=== PATIENT | male | born 1940 | race Caucasian/White ===

== ENCOUNTER 2022-01-11 06:07 | Day surgery (SDC) | payer MEDICARE, OTHER ==
[~2022-01-11] VITALS: Ht 175.3 cm; Wt 80.5 kg
[~2022-01-11 06:07] MED LIST: LEVOTHYROXINE75 MCG PO; MOMETASONE FURO17 GM NAS; VENTOLIN HFA18 GM INH
--- NOTE | 2022-01-11 08:33 | NUR ---
PT ALERT, ORIENTED AND SUPPORTED BY HIS . PT HAS HAD PREVIOUS SCOPE, DROVE MORE THAN AN HOUR TO GET HERE THIS MORNING. ALL QUESTIONS ASKED ANSWERED. RT IN TO GIVE EKG, GAVE BLESSING AND WILL FOLLOW
--- NOTE | 2022-01-11 09:03 | NUR ---
01/11/22 0903 Sheets,Malena 0800 PT ARRIVED TO PACU ON 6L VIA MASK, VSS. RESP EVEN AND UNLABORED. PT REACTIVE TO TACTILE STIMULI.
--- NOTE | 2022-01-11 17:55 | OR ---
[facility] [address], [place] [address] Signed DATE OF OPERATION: 01/11/2022 SURGEON: Yanet Mcnulty MD PREOPERATIVE DIAGNOSIS: Known history of ulcerative colitis; recently symptomatic with episodic blood per rectum and diarrhea. POSTOPERATIVE DIAGNOSES: 1. Moderate colitis of left colon, sigmoid and rectum, proximal colon normal. 2. Diverticulosis. 3. Polyps x4 (sigmoid and rectum). PROCEDURES: 1. Total colonoscopy to cecum with hot snare polypectomy x4. 2. Cold morcellation biopsies, rectum, sigmoid, left colon, transverse, and cecum. ANESTHESIA: Intravenous sedation, propofol infusion; Lakisha Jeffery CRNA. INDICATIONS: This 81-year-old white man is a patient of Dr. Cristy Carmen and well known to me from the past and been diagnosed with ulcerative colitis. A variety of first level medications have been given to him, which for various reasons he does not tolerate well. He was quite intolerant of mesalamine, ultimately which changed to a more classic regimen, which again caused nausea. He ultimately quit taking his medication altogether and was feeling reasonably well. A colonoscopy in May of 2019 confirmed hyperplastic polyps as well as moderate chronic active colitis at 30 cm without signs of crypt abscess. More recently, he had a "flare" of colitis, for which he self-medicated with prednisone and he had left over from prior treatment. He is admitted at this time to undergo colonoscopy on the basis of his recent rectal bleeding and so forth to assess for disease activity and of course additionally to assess for malignancy considering underlying diagnosis of marginally treated chronic ulcerative colitis. He understands the risks of bleeding, infection, and perforation related to colonoscopy and wished to proceed. FINDINGS: Prep was good. Complete colonoscopy was undertaken to the cecum without question. He had a fair number of diverticula of the sigmoid and left colon. He had a completely normal-appearing mucosa of the right colon, transverse, and proximal descending colon, Electronically Signed By: YANET MCNULTY MD 01/11/22 1755 PATIENT NAME: MARITZA CASE OPERATIVE REPORT DATE OF : 42 REPORT #: [id number] PHYSICIAN: YANET MCNULTY MD PCP: CRISTY CARMEN MD REPORT IS CONFIDENTIAL AND NOT TO BE RELEASED WITHOUT AUTHORIZATION [facility] [address], [place] [address] Signed but moderate active colitis of the left colon, sigmoid, and rectum. There were three polyps in the sigmoid, one in the rectum, which were of sessile, probably inflammatory, not adenomatous. All were excised, however. Biopsies were additionally taken throughout the colon to assess disease activity and underlying pathology. DESCRIPTION OF PROCEDURE: The patient was brought to the surgical endoscopy suite and placed in lateral decubitus position, given intravenous sedation with propofol infusional technique by the switchboard operator supervisor. Digital rectal examination was normal. An Olympus video colonoscope was passed into the rectum and manipulated into the rectum, where active colitis was immediately noted. There was some slightly bulky polyps, more likely inflammatory than adenomatous. The scope was advanced through the colon noting diverticular change of the sigmoid and left colon. Scope was ultimately passed to the cecum. The ileocecal valve and appendiceal orifice were normal. Biopsies were taken of the cecum. The scope was withdrawn. Biopsies taken of the right colon, transverse colon, whose mucosa appeared entirely normal in the proximal descending colon. The beginning of colitis was then verified. Biopsies were obtained. The scope was further withdrawn and biopsies taken of the sigmoid for assessment of disease activity as well. There were three somewhat sessile, relatively larger polyps in the rectosigmoid and sigmoid, most likely consistent with inflammatory polyps or "pseudopolyps." These were excised with hot snare polypectomy technique, nevertheless. Hemostasis was good. The scope was further withdrawn and biopsy taken of the rectum and another similar such inflammatory polyp noted, it was excised with hot snare technique as well. The scope was removed. The patient was taken to the recovery room in good condition. CONCLUDING DIAGNOSES: The patient clearly has some activity of his colitis of the sigmoid rectum and portion of left colon. We will initiate prednisone on short-term basis to get better symptom and histologic control. He will be given a PPI prescription as well while on short-term prednisone. We will see him back in the office in 6 weeks or so. MD MADDY Ochoa/BAKARIL /[id number] Electronically Signed By: YANET MCNULTY MD 01/11/22 1755 PATIENT NAME: MARITZA CASE OPERATIVE REPORT DATE OF : 42 REPORT #: [id number] PHYSICIAN: YANET MCNULTY MD PCP: CRISTY CARMEN MD REPORT IS CONFIDENTIAL AND NOT TO BE RELEASED WITHOUT AUTHORIZATION [address] [address] Signed cc: Cristy Carmen MD Copies: ~ Electronically Signed By: YANET MCNULTY MD 01/11/22 1755 PATIENT NAME: EVIEMARITZA Aquino OPERATIVE REPORT DATE OF : 42 REPORT #: [id number] PHYSICIAN: YANET MCNULTY MD PCP: CRISTY CARMEN MD REPORT IS CONFIDENTIAL AND NOT TO BE RELEASED WITHOUT AUTHORIZATION
--- NOTE | 2022-01-14 20:51 | EKG ---
[facility] [address] [facility] [place] [address] Signed Sinus rhythm with marked sinus arrhythmia with occasional premature ventricular complexes Otherwise normal ECG No previous ECGs available Confirmed by Berlin Randolph MD () on 01/14/2022 8:51:36 PM Electronically Signed By: BERLIN RANDOLPH MD 01/14/222050 PATIENT NAME: MARITZA CASE Electrocardiogram DATE OF : 42 PHYSICIAN: BERLIN RANDOLPH MD REPORT #: [id number] REPORT IS CONFIDENTIAL AND NOT TO BE RELEASED WITHOUT AUTHORIZATION
== END 2022-01-11 09:53 | disposition home or self-care (01) ==
LOC: DS 06:07 → OPS 06:07 → DS 07:30 → OPS 07:30
PROVIDERS: ATTEND Surgery
PROC: 0DBN8ZX Excision of Sigmoid Colon, Via Natural or Artificial Opening Endoscopic, Diagnostic (ICD-10-PCS; 2022-01-11)
PROC: 0DBP8ZX Excision of Rectum, Via Natural or Artificial Opening Endoscopic, Diagnostic (ICD-10-PCS; principal; 2022-01-11 08:15)
DX: K51.411 Inflammatory polyps of colon with rectal bleeding (principal); K51.511 Left sided colitis with rectal bleeding; J44.9 Chronic obstructive pulmonary disease, unspecified; E05.90 Thyrotoxicosis, unspecified without thyrotoxic crisis or storm; K64.9 Unspecified hemorrhoids; K57.30 Diverticulosis of large intestine without perforation or abscess without bleeding; K30 Functional dyspepsia; I49.3 Ventricular premature depolarization; K62.1 Rectal polyp; Z88.0 Allergy status to penicillin; Z88.6 Allergy status to analgesic agent
CPT/HCPCS: 88305; 93005; 93010; J2704; J7121